=== PATIENT | female | born 1965 | race Caucasian/White ===

== ENCOUNTER 2016-09-21 12:09 | Emergency (ER) | payer BC ==
[2016-09-21 12:23] VITALS: BP 127/81; PULSE 89; RESP 18; TEMP 97.9; O2SAT 100
--- NOTE | 2016-09-21 13:28 | C.PDOC ---
History Of Present Illness 51 year old patient, with a past medical history of arthritis and migraines, presents to the ED complaining of a rash for the past few days. Patient was using cleaning products and thinks she got it on her neck. The rash is itchy and has a irritating sensation. Patient denies shortness of breath, throat swelling, fever, or vomiting. Time Seen by Provider: 09/21/16 12:34 Chief Complaint (Nursing): Abnormal Skin Integrity History Per: Patient History/Exam Limitations: no limitations Onset/Duration Of Symptoms: Days (few) Current Symptoms Are (Timing): Still Present Location Of Injury: Anterior: Neck Quality Of Symptoms: Painful, Itching, Other (irritating) Severity: Mild Pain Scale Rating Of: 3 Recent travel outside of the [place]: No Past Medical History Reviewed: Historical Data, Nursing Documentation, Vital Signs Vital Signs: Last Vital Signs Temp 97.9 F 09/21/16 12:21 Pulse 89 09/21/16 12:21 Resp 18 09/21/16 12:21 BP 127/81 09/21/16 12:21 Pulse Ox 100 09/21/16 14:04 - Medical History PMH: Arthritis, Migraine Family History: States: Unknown Family Hx - Social History Hx Tobacco Use: No Hx Alcohol Use: No Hx Substance Use: No - Immunization History Hx Tetanus Toxoid Vaccination: Yes Hx Influenza Vaccination: No Hx Pneumococcal Vaccination: No Review Of Systems Except As Marked, All Systems Reviewed And Found Negative. Constitutional: Negative for: Fever ENT: Negative for: Throat Swelling Respiratory: Negative for: Shortness of Breath Gastrointestinal: Negative for: Vomiting Skin: Positive for: Rash (neck; burning and itching) Physical Exam - Physical Exam Appears: Non-toxic, No Acute Distress Skin: Warm, Dry, Rash (dry, flaky, hyperpigmented rash to the anterior aspect of the neck and to the right forehead; (-)erythema (-)swelling) Head: Atraumatic, Normacephalic Eye(s): bilateral: Normal Inspection, PERRL, EOMI Ear(s): Bilateral: Normal Nose: Normal Oral Mucosa: Moist Tongue: Normal Appearing Lips: Normal Appearing Throat: Normal Neck: Normal ROM, Supple Chest: Symmetrical Cardiovascular: Rhythm Regular Respiratory: Normal Breath Sounds, No Rales, No Rhonchi, No Wheezing Back: Normal Inspection Extremity: Normal ROM Neurological/Psych: Oriented x3, Normal Speech, Normal Cognition Gait: Steady ED Course And Treatment O2 Sat by Pulse Oximetry: 100 (RA) Pulse Ox Interpretation: Normal Medical Decision Making Medical Decision Makin51 year old with a rash on the anterior aspect of her neck appears irritated, no signs of cellulitis. Recommend benadryl for any itching and will prescribe topical ointment Disposition Counseled Patient/Family Regarding: Diagnosis, Need For Followup, Rx Given - Disposition Disposition: HOME/ ROUTINE Disposition Time: 13:40 Condition: STABLE Additional Instructions: apply cream to area twice daily may take benadryl for any itching Aplicar crema a la cordelia dos veces al da Puede mendel benadryl para cualquier picazn Prescriptions: Mineral Oil/Hydrophil Petrolat [Aquaphor] 1 oin TP BID #1 oin Hydrocortisone [Cortisone] 14 gm TP BID #1 cream..g. Instructions: Contact Dermatitis (ED) Print Language: TUVALUAN - POA Present On Arrival: None - Clinical Impression Clinical Impression: Contact dermatitis - PA / PASSENGER RELATIONS REPRESENTATIVE / Resident Statement MD/DO has reviewed & agrees with the documentation as recorded. - Scribe Statement The provider has reviewed the documentation as recorded by the Scribe Harika Goodwin All medical record entries made by the Scribe were at my direction and personally dictated by me. I have reviewed the chart and agree that the record accurately reflects my personal performance of the history, physical exam, medical decision making, and the department course for this patient. I have also personally directed, reviewed, and agree with the discharge instructions and disposition.
== END 2016-09-21 13:43 | disposition home or self-care (01) ==
LOC: C.ER 12:09
DX: L25.3 Unspecified contact dermatitis due to other chemical products (principal)

== ENCOUNTER 2017-08-09 16:48 | Emergency (ER) | payer BC ==
[2017-08-09 17:25] VITALS: BP 125/82; PULSE 72; TEMP 98.3; O2SAT 99
[2017-08-09 17:33] VITALS: BMI 23.6
--- NOTE | 2017-08-09 18:01 | C.PDOC ---
History Of Present Illness 52 year old female presents to the ER with a complaint of left back, shoulder, and chest wall pain since yesterday. 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 Denies SOB, weakness, or numbness. Time Seen by Provider: 08/09/17 17:42 Chief Complaint (Nursing): Back Pain History Per: Patient History/Exam Limitations: no limitations Onset/Duration Of Symptoms: Days Current Symptoms Are (Timing): Still Present Previous Symptoms: None Associated Symptoms: None Recent travel outside of the [place]: No Past Medical History Reviewed: Historical Data, Nursing Documentation, Vital Signs Vital Signs: Last Vital Signs Temp 98.3 F 08/09/17 17:24 Pulse 72 08/09/17 17:24 Resp 20 08/09/17 19:49 BP 125/82 08/09/17 17:24 Pulse Ox 99 08/09/17 19:18 - Medical History PMH: Arthritis, Migraine Family History: States: Unknown Family Hx - Social History Hx Tobacco Use: No Hx Alcohol Use: No Hx Substance Use: No - Immunization History Hx Tetanus Toxoid Vaccination: Yes Hx Influenza Vaccination: No Hx Pneumococcal Vaccination: No Review Of Systems Respiratory: Negative for: Shortness of Breath Musculoskeletal: Positive for: Arm Pain, Back Pain, Other (Chest wall pain) Neurological: Negative for: Weakness, Numbness Physical Exam - Physical Exam Appears: Non-toxic, No Acute Distress Skin: Normal Color, Warm, Dry Head: Atraumatic, Normacephalic Eye(s): bilateral: Normal Inspection Oral Mucosa: Moist Neck: Paracervical Tenderness (Left) Chest: Symmetrical, Tenderness (Left) Cardiovascular: Rhythm Regular Respiratory: Normal Breath Sounds, No Rales, No Rhonchi, No Wheezing Back: No Vertebral Tenderness, Paraspinal Tenderness (left trapezius) Extremity: Normal ROM (x4) Pulses: Left Radial: Normal, Right Radial: Normal Neurological/Psych: Oriented x3, Normal Speech, Normal Motor, Normal Sensation ED Course And Treatment ECG: Interpreted By Me, Viewed By Me ECG Rhythm: Sinus Rhythm ECG Interpretation: Normal Rate From EC O2 Sat by Pulse Oximetry: 99 (Room air) Pulse Ox Interpretation: Normal Medical Decision Making Medical Decision Making: Toradol administered. 710 pm pt feeling better after Toradol. will d/c with nsaids and f/u pmd. avoid heavy lifting. F/u pmd Disposition Counseled Patient/Family Regarding: Diagnosis, Need For Followup, Rx Given - Disposition Referrals: [facility] [Outside] Disposition: HOME/ ROUTINE Disposition Time: 19:15 Condition: IMPROVED Additional Instructions: Fuig ibuprofeno segn lo prescrito. Evite levantar objetos pesados. El fro se comprime en el charisse afectada en el lado tristan de la espalda. Ubquese con wilks proveedor de atencin primaria o en la clnica.Take ibuprofen as prescribed. Avoid heavy lifting. Cold compresses to affected area on left side of back. FOllow up with your primary care provider or in clinic. Prescriptions: Ibuprofen [Motrin] 600 mg PO TID #30 tab Instructions: Muscle Strain Forms: Gen Discharge Inst American, Mailsuite (American), Work Excuse Print Language: SWEDISH - Clinical Impression Clinical Impression: Thoracic back sprain - PA / MECHANICAL DEVELOPMENT ENGINEER / Resident Statement MD/DO has reviewed & agrees with the documentation as recorded. - Scribe Statement The provider has reviewed the documentation as recorded by the Scribe Lorne Christiansen All medical record entries made by the Scribe were at my direction and personally dictated by me. I have reviewed the chart and agree that the record accurately reflects my personal performance of the history, physical exam, medical decision making, and the department course for this patient. I have also personally directed, reviewed, and agree with the discharge instructions and disposition.
[2017-08-09 19:50] VITALS: RESP 20
--- NOTE | 2017-08-12 12:32 | CARD ---
APPROVED REPORT EKG Measurement Heart [id number] <Conclusion> Normal sinus rhythm Normal ECG
== END 2017-08-09 19:49 | disposition home or self-care (01) ==
LOC: C.ER 16:48
DX: S23.3XXA Sprain of ligaments of thoracic spine, initial encounter (principal); X50.0XXA Overexertion from strenuous movement or load, initial encounter; Y92.89 Other specified places as the place of occurrence of the external cause; Y99.8 Other external cause status
CPT/HCPCS: 96372; 99283; J1885

== ENCOUNTER 2018-03-20 10:20 | Emergency (ER) | payer BC ==
[2018-03-20 10:20] VITALS: BMI 23.6
[2018-03-20 10:25] VITALS: BP 124/77; PULSE 92; RESP 16; TEMP 98.9; O2SAT 100
--- NOTE | 2018-03-20 11:36 | C.PDOC ---
History Of Present Illness 53 y/o female presents to the ER complaining of sinus congestion and sore throat which has been present for the past 4 days. Patient states that she also has nasal congestion. Patient reports that she did not take any medications for the symptoms. Denies having fever, chills, cough, CP, and SOB. Time Seen by Provider: 03/20/18 10:26 Chief Complaint (Nursing): ENT Problem History Per: Patient History/Exam Limitations: no limitations Onset/Duration Of Symptoms: Days Current Symptoms Are (Timing): Still Present Severity: Moderate Past Medical History Reviewed: Historical Data, Nursing Documentation, Vital Signs Vital Signs: Last Vital Signs Temp 98.9 F 03/20/18 10:23 Pulse 92 H 03/20/18 10:23 Resp 16 03/20/18 10:23 BP 124/77 03/20/18 10:23 Pulse Ox 100 03/20/18 10:23 - Medical History PMH: Arthritis, Migraine Other Surgeries: Hx of surgeries Family History: States: No Known Family Hx - Social History Hx Tobacco Use: No Hx Alcohol Use: No Hx Substance Use: No - Immunization History Hx Tetanus Toxoid Vaccination: Yes Hx Influenza Vaccination: No Hx Pneumococcal Vaccination: No Review Of Systems Except As Marked, All Systems Reviewed And Found Negative. Constitutional: Negative for: Fever, Chills ENT: Positive for: Other (sinus congestion, nasal congestion) Cardiovascular: Negative for: Chest Pain Respiratory: Negative for: Cough, Shortness of Breath Physical Exam - Physical Exam Appears: Non-toxic, No Acute Distress Skin: Normal Color, Warm, Dry Head: Atraumatic, Normacephalic Eye(s): bilateral: Normal Inspection Ear(s): Bilateral: Normal Nose: Tenderness (frontal sinus tenderness ), Other (mild erythema to nose) Oral Mucosa: Moist Throat: Normal, No Erythema, No Exudate Neck: Supple Chest: Symmetrical Cardiovascular: Rhythm Regular Respiratory: Normal Breath Sounds, No Rales, No Rhonchi, No Wheezing Neurological/Psych: Oriented x3, Normal Speech ED Course And Treatment O2 Sat by Pulse Oximetry: 100 (RA) Pulse Ox Interpretation: Normal Medical Decision Making Medical Decision Making: Patient has been discharged with prescriptions for Zithromax and Motrin and instructed to follow up with PMD in 3-4 days. Disposition - [facility] - Disposition: HOME/ ROUTINE Disposition Time: 10:30 Condition: GOOD Additional Instructions: [facility], thank you for letting us take care of you today. Your provider was Silvestre Bauman DO and you were treated for THROAT PAIN. The emergency medical care you received today was directed at your acute symptoms. If you were prescribed any medication, please fill it and take as directed. It may take several days for your symptoms to resolve. Return to the Emergency Department if your symptoms worsen, do not improve, or if you have any other problems. Please contact your doctor or call one of the physicians/clinics you have been referred to that are listed on the Patient Visit Information form that is included in your discharge packet. Bring any paperwork you were given at [facility] with you along with any medications you are taking to your follow up visit. Our treatment cannot replace ongoing medical care by a primary care provider outside of the emergency department. Thank you for allowing the [facility] team to be part of your care today. Follow up with your primary care doctor in 3-4 days for re-evaluation and further management. Prescriptions: Azithromycin [Zithromax] 250 mg PO DAILY #6 tab Ibuprofen [Motrin] 600 mg PO Q6 PRN #20 tab PRN Reason: Pain, Moderate (4-7) Instructions: Sinusitis, Adult (DC) Forms: [employer] (Mongolian) - Clinical Impression Clinical Impression: Sinusitis - Scribe Statement The provider has reviewed the documentation as recorded by the Scribe Corby Giraldo Provider Attestation: All medical record entries made by the Scribe were at my direction and personally dictated by me. I have reviewed the chart and agree that the record accurately reflects my personal performance of the history, physical exam, medical decision making, and the department course for this patient. I have also personally directed, reviewed, and agree with the discharge instructions and disposition
== END 2018-03-20 10:51 | disposition home or self-care (01) ==
LOC: C.ER 10:20
DX: J32.9 Chronic sinusitis, unspecified (principal)